=== PATIENT | male | born 1970 | race Caucasian/White ===

== ENCOUNTER 2024-06-23 14:05 | Outpatient (OUT) | payer BC, SELFPAY ==
--- NOTE | 2024-06-23 14:24 | XR_ITS ---
The [address] [address] Patient Name: JANET HOGAN MRN: [id number] date: 1970 Sex: M Assigned Patient Location: RAD Current Patient Location: [facility] Accession/Order Number: [id number] Exam Date: 06/23/2024 14:15 Report Date: 06/23/2024 14:33 At the request of: DEVON FINE Procedure: XR knee LT 4V EXAM: XR knee LT 4V HISTORY: Left Knee Pain COMPARISON: None. TECHNIQUE: 4 views of the left knee were obtained. FINDINGS: There is no evidence of an acute fracture or dislocation. There is mild narrowing of the medial compartment. No osteochondral injury is identified. There is no evidence of a joint effusion. Calcifications are seen in the meniscal cartilage and the articular cartilages in the medial and lateral compartments. XR/XR knee LT 4V IMPRESSION: No acute fracture or dislocation. There is mild narrowing of the medial compartment. Calcium deposition disease is noted. Electronically authenticated by: CLEO RANGEL Date: 06/23/2024 14:33
== END 2024-06-23 14:06 | disposition home or self-care (01) ==
LOC: RAD 14:09
PROVIDERS: PCP Internal Medicine; Visit Provider Internal Medicine
DX: M25.562 Pain in left knee (principal)
CPT/HCPCS: 73564

== ENCOUNTER 2025-02-25 07:47 | Outpatient (OUT) | payer BC, SELFPAY ==
--- OUTSIDE RECORDS SUMMARY | 2025-02-25 07:51 | XMS_ITS | Encounter Summary ---
Author Organization [facility] Address [address] [id number] Care Team Providers Care Medication Nurse Name Role Phone Uzair Layne Primary Care Provider [phone] Source Comments In the event this information is protected by the Federal Confidentiality of Alcohol and Drug AbusePatient Records regulations: The Federal rules restrict any use of the information to criminally investigate or prosecute any alcohol or drug abuse patient.[facility] Reason for Visit * Reason Comments Psg Check In (Adult) Encounter Details Date Type Department Care Team (Late st Contact Info) Description 11/29/2015 Abstract Neurology [address] [id number] [facility] [address] [id number] Psg Check In (Adult) Social History Tobacco Use Types Packs/Day Years Used Date Smoking Tobacco: Never Smokeless Tobacco: Former Chew Quit: 10/28/2015 Comments:16 Years Alcohol Use Standard Drinks/Week Comments Yes 0 (1 standard drink = 0.6 oz pur e alcohol) Socially Sex and Gender Information Value Date Recorded Sex Assigned at Not on file Legal Sex Male 9:11 AM EDT Gender Identity Not on file Sexual Orientation Not on file Occupation Industry Job Start Date Job End Date [employer] Not on file Not on file Not on file documented as of this encounter Plan of Treatment Not on file documented as of this encounter Visit Diagnoses Not on filedocumented in this encounter Care Teams Medication Nurse Relationship Specialty Start Date End Date zUair Layne DO PCP - General Internal Medicine 11/19/15 documented as of this encounter
--- OUTSIDE RECORDS SUMMARY | 2025-02-25 07:51 | XMS_ITS | CCD ---
Author Organization [facility] Care Team Providers Care Laundry Helper Name Role Phone STACEY JOSHUA Admitting Unavailable STACEY JOSHUA Attending Unavailable BALL, DR DUNNE Primary Care Unavailable STACEY JOSHUA Consulting Unavailable REQUEST, DR GOODRICH LISTED Admitting Unavaila ble REQUEST, DR GOODRICH LISTED Attending Unavaila ble REQUEST, DR GOODRICH LISTED Consulting Unavaila ble BALL, DR DUNNE Primary Care Unavailable RUSSELL, RAY Admitting Unavailable RUSSELL, RAY Attending Unavailable CECILIO, DR EN Flaherty Consulting Unavailable Tomer, Storm Consulting Unavailable RUSSELL, RAY Consulting Unavailable ROVERTO, DR DUNNE Admitting Unavailable BALL, DR DUNNE Attending Unavailable ROVERTO, DR DUNNE Primary Care Unavailable ROVERTO, DR DUNNE Consulting Unavailable Roverto, DO Dunne Primary Care Provider [phone] DO Uzair Fine Attending Provider Uzair Fine DO Primary Care Provider [phone] Mark Marshall DO Attending Provider Mark Marshall Admitting Unavailable Mark Marshall Attending Unavailable Uzair Fine Primary Care Unavailable Roverto, Uzair Primary Care Unavailable Roverto, Uzair Attending Unavailable Roverto, Uzair Admitting Unavailable Uzair Fine DO Primary Care Provider [phone] Uzair Fine DO Attending Provider [phone] Allergies Allergy Classification Reported Allergen(s) Allergy Type Date of Onset Reaction(s) Facility (1 source) Azithromycin Drug Allergy [facility] Repository (1 source) HYDROmorphone Drug Allergy [facility] Repository (1 source) Azithromycin Drug Allergy 06-20-2024 [facility] Repository Medications Current Medications Medication Drug Class(es) Dates Sig (Normalized) Sig (Original) amLODIPine 2.5 mg oral tablet (4 sources) Dihydropyridine Calcium Channel [place]on Start: 02-22-2024 take 1 tablet by mouth once daily Amlodipine 2.5 mg tablet Active 0 .ROUTE .COMPLEX 90 February 22, 2024 8:46pm TAKE 1 TABLET BY MOUTH EVERY DAY Complies with drug therapy Start: 01-26-2024 End: 02-22-2024 take 1 tablet by mouth once daily Amlodipine 2.5 mg tablet Discontinued 2.5 MG PO Daily January 26, 2024 12:00am February 22, 2024 8:47pm carvedilol 3.125 mg oral tablet (5 sources) alpha-Adrenergic Jameson, beta-Adrenergic Jameson Start: 08-11-2024 take 1 tablet by mouth twice daily Carvedilol 3.125 mg tablet Active 0 .ROUTE .COMPLEX 180 August 11, 2024 10:46pm TAKE 1 TABLET BY MOUTH TWICE A DAY Complies with drug therapy Start: 01-13-2024 End: 08-11-2024 take 1 tablet by mouth twice daily Carvedilol 3.125 mg tablet Discontinued 3.125 MG PO Twice daily January 13, 2024 12:00am August 11, 2024 10:46pm etodolac 500 mg oral tablet (2 sources) Nonsteroidal Anti-inflammatory Drug Start: 06-20-2024 take 1 tablet by mouth twice daily Etodolac 500 mg tablet Active 500 MG PO Twice daily June 20, 2024 1:00am Complies with drug therapy meloxicam 15 mg oral tablet (2 sources) Nonsteroidal Anti-inflammatory Drug Start: 06-28-2024 take 1 tablet by mouth once daily Meloxicam 15 mg tablet Active 15 MG PO Daily June 28, 2024 1:00am Complies with drug therapy Problems Problem Classification Problem Date Documented Date Episodic/Chronic Diabetes mellitus without complication (2 sources) Impaired fasting glycemia; Translations: [Impaired fasting glucose] 01-26-2024 Episodic Essential hypertension (8 sources) Essential hypertension; Translations: [Essential (primary) hypertension] 01-13-2024 Chronic Gout and other crystal arthropathies (6 sources) 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; Translations: [Other chondrocalcinosis, left knee] 06-28-2024 Chronic Immunizations and screening for infectious disease (4 sources) Encounter for immunization; Translations: [ENCOUNTER FOR IMMUNIZATION] Onset: 05-28-2021 Episodic Nonspecific chest pain (4 sources) Chest pain, unspecified; Translations: [CHEST PAIN UNSPECIFIED] Onset: 08-17-2021 Episodic Other lower respiratory disease (1 source) Shortness of breath; Translations: [SHORTNESS OF BREATH] Onset: 08-19-2021 Episodic Other male genital disorders (7 sources) Male erectile dysfunction, unspecified; Translations: [Erectile dysfunction] 01-13-2024 Chronic Other non-traumatic joint disorders (4 sources) Pain in left knee; Translations: [Left knee pain] Onset: 06-28-2024 01-26-2024 Episodic Other nutritional; endocrine; and metabolic disorders (5 sources) Overweight; Translations: [Overweight] 01-13-2024 Episodic Other nutritional; endocrine; and metabolic disorders (2 sources) Overweight; Translations: [Overweight] 01-13-2024 Episodic Other screening for suspected conditions (not mental disorders or infectious disease) (4 sources) Encounter for screening for malignant neoplasm of prostate; Translations: [Screening for malignant neoplasms of prostate] Onset: 04-12-2021 01-13-2024 Episodic Screening and history of mental health and substance abuse codes (1 source) Personal history of nicotine dependence; Translations: [PERSONAL HISTORY OF NICOTINE DEPEND] Onset: 08-19-2021 Episodic Sprains and strains (3 sources) Sprain of left knee; Translations: [Sprain of other specified parts of left knee, initial encounter] 01-26-2024 Episodic Results Test Name Value Interpretation Reference Range Facility X-ray reportOrdered By: Sagar Ling on 06-28-2024 Study report [facility] [address] [place] [address] XRay Report Signed Patient: Harlan Ham MR#: [id number] : 1970 Acct:[id number] Age/Sex: 54 / M ADM Date: 5 Loc: [facility] Room: Type: [facility] Attending Dr: Mark Marshall DO Copies to: Mark Marshall DO~ Ordering Provider: Mark Marshall DO Date of Service: 06/28/24 XR/XR knee LT 4V*: M25.562 - Pain in left knee ([id number]) XR/XR knee RT 2V: M25.562 - Pain in left knee BILATERAL KNEE - 4 views left 2 views right CLINICAL HISTORY: Left knee pain for one year. COMPARISON: None FINDINGS: Left knee demonstrates no knee joint effusion. Mild degenerative changes with chondrocalcinosis of the menisci. No acute bony process. A similar process is seen involving the right knee without acute bony process. XR/XR knee RT 2V IMPRESSION: MILD DEGENERATIVE CHANGES OF BOTH KNEES WITHOUT ACUTE BONY PROCESS. Impression dictated by: Fei Ling Jr., D.O.06/28/2024 9:23 AM Dictation Location: RADIO-PC-22 Transcribed By: JUAN JOSE 06/28/24 0923 Dictated By: Fei Ling Jr, DO 06/28/2422 Signed By: 06/28/24922 [facility] XR knee LT 4V*on 06-28-2024 XR knee LT 4V* [facility] [address] [place] [address] XRay Report Signed Patient: Harlan Ham MR#: [id number] 24 : 1970 Acct:[id number] Age/Sex: 54 / M ADM Date: 06/28/24 Loc: [facility] Room: Type: [facility] Attending Dr: Mark Marshall DO Copies to: Mark Marshall DO Ordering Provider: Mark Marshall DO Date of Service: 06/28/24 XR/XR knee LT 4V*: M25.562 - Pain in left knee ([id number]) XR/XR knee RT 2V: M25.562 - Pain in left knee BILATERAL KNEE - 4 views left 2 views right CLINICAL HISTORY: Left knee pain for one year. COMPARISON: None FINDINGS: Left knee demonstrates no knee joint effusion. Mild degenerative changes with chondrocalcinosis of the menisci. No acute bony process. A similar process is seen involving the right knee without acute bony process. XR/XR knee RT 2V IMPRESSION: MILD DEGENERATIVE CHANGES OF BOTH KNEES WITHOUT ACUTE BONY PROCESS. Impression dictated by: Fei Ling Jr., D.O.06/28/2024 9:23 AM Dictation Location: RADIO-PC-22 Transcribed By: JUAN JOSE 06/28/24 0923 Dictated By: Fei Ling Jr, DO 06/28/24921 Signed By: 06/28/24922 Normal [facility] A1C with Estimated Average G cadence 01-23-2024 Glucose [Mass/Vol] 126 mg/dL Normal [facility] Comment on above: Result Comment: PERF ORMED BY: [place] [address] PATHOLOGIST JAVA DEVELOPER WHIT PICHARDO M.D. Performed By: #### C BC, CMP, LIPID, PSAS, TEST, A1C WTH eA #### [facility] [address] Alanine aminotransferase [En zymatic activity/volume] in Serum or PlasmaOrdered By: Uzair Fine on 01-23-2024 ALT [Catalytic activity/Vol] 20 U/L Normal 7-52 [facility] Comment on above: Performed By: #### C BC, CMP, LIPID, PSAS, TEST, A1C WTH eA #### [place] [address] [place] Albumin [Mass/volume] in Ser um or Plasma by Bromocresol green (BCG) dye binding methoOrdered By: Uzair Fine on 01-23-2024 Albumin BCG dye [Mass/Vol] 4.3 g/dL 3.5-5.7 [facility] Alkaline phosphatase [Enzyma tic activity/volume] in Serum or PlasmaOrdered By: Uzair Fine on 01-23-2024 ALP [Catalytic activity/Vol] 54 U/L Normal 34-104 [facility] Comment on above: Performed By: #### C BC, CMP, LIPID, PSAS, TEST, A1C WT eA #### [facility] [address] [place] [address] [place] Aspartate aminotransferase [ Enzymatic activity/volume] in Serum or PlasmaOrdered By: Uzair Fine on 01-23-2024 AST [Catalytic activity/Vol] 19 U/L Normal 13-39 [facility] Comment on above: Performed By: #### C BC, CMP, LIPID, PSAS, TEST, A1C WTH eA #### [place] [address] [place] Automated basophil %Ordered By: Uzair Fine on 01-23-2024 Basophils/100 WBC (Bld) 1.1 % Normal . [facility] Comment on above: Performed By: #### C BC, CMP, LIPID, PSAS, TEST, A1C WTH eA #### [address] Automated basophil countOrde red By: Uzair Fine on 01-23-2024 Basophils (Bld) [#/Vol] 0.1 10*3/uL Normal 0.0-0.2 [facility] Comment on above: Result Comment: PERF ORMED BY: [place] [address] PATHOLOGIST JAVA DEVELOPER WHIT PICHARDO M.D. Performed By: #### C BC, CMP, LIPID, PSAS, TEST, A1C WT eA #### [address] Automated blood monocyte cou ntOrdered By: Uzair Fine on 01-23-2024 Monocytes (Bld) [#/Vol] 0.4 10*3/uL Normal 0.0-0.8 [facility] Comment on above: Performed By: #### C BC, CMP, LIPID, PSAS, TEST, A1C [facility] eA #### [address] Automated eosinophil %Ordere d By: Uzair Fine on 01-23-2024 Eosinophils/100 WBC (Bld) 3.1 % Normal . [facility] Comment on above: Performed By: #### C BC, CMP, LIPID, PSAS, TEST, A1C WTH eA #### [address] Automated eosinophil countOr dered By: Uzair Fine on 01-23-2024 Eosinophils (Bld) [#/Vol] 0.2 10*3/uL Normal 0.0-0.45 [facility] Comment on above: Performed By: #### C BC, CMP, LIPID, PSAS, TEST, A1C WTH eA #### [address] Automated monocyte %Ordered By: Uzair Fine on 01-23-2024 Monocytes/100 WBC (Bld) 7.7 % Normal . [facility] Comment on above: Performed By: #### C BC, CMP, LIPID, PSAS, TEST, A1C WTH eA #### [facility] [address] [place] [address] [place] Automated neutrophil %Ordere d By: Uzair Fine on 01-23-2024 Neutrophils/100 WBC (Bld) 54.0 % Normal . [facility] Comment on above: Performed By: #### C BC, CMP, LIPID, PSAS, TEST, A1C WTH eA #### [facility] [address] [place] [address] [place] Bilirubin.total [Mass/volume ] in Serum or PlasmaOrdered By: Uzair Fine on 01-23-2024 Bilirubin [Mass/Vol] 0.7 mg/dL Normal 0.3-1.0 [facility] Comment on above: Performed By: #### C BC, CMP, LIPID, PSAS, TEST, A1C WT eA #### [facility] [address] [place] [address] [place] Calcium [Mass/volume] in Ser um or PlasmaOrdered By: Uzair Fine on 01-23-2024 Calcium [Mass/Vol] 9.3 mg/dL Normal 8.6-10.3 [facility] Comment on above: Performed By: #### C BC, CMP, LIPID, PSAS, TEST, A1C WTH eA #### [facility] [address] [place] [address] [place] Carbon dioxide, total [Moles /volume] in Serum or PlasmaOrdered By: Uzair Fine on 01-23-2024 CO2 [Moles/Vol] 26.2 mmol/L Normal 21.0-31.0 [facility] Comment on above: Performed By: #### C BC, CMP, LIPID, PSAS, TEST, A1C WTH eA #### [facility] [address] [place] [address] [place] Chloride [Moles/volume] in S jan or PlasmaOrdered By: Uzair Fine on 01-23-2024 Chloride [Moles/Vol] 105 mmol/L Normal 98-107 [facility] Comment on above: Performed By: #### C BC, CMP, LIPID, PSAS, TEST, A1C WTH eA #### [facility] [address] [place] [phone] [facility] Cholesterol [Mass/volume] in Serum or PlasmaOrdered By: Uzair Fine on 01-23-2024 Cholesterol [Mass/Vol] 202 mg/dL High 140-200 [facility] Comment on above: Chol less than 200 m g/dl low riskChol 201-239 mg/dl borderline riskChol 240 mg/dl and greater high risk Result Comment: Chol less than 200 mg/dl low risk Chol 201-239 mg/dl borderline risk Chol 240 mg/dl and greater high risk Performed By: #### C BC, CMP, LIPID, PSAS, TEST, A1C WT eA #### [facility] [address] [place] [phone] [facility] Cholesterol in LDL Calc [Mas s/Vol]Ordered By: Uzair Fine on 01-23-2024 Cholesterol in LDL [Mass/Vol] 117 mg/dL High 0-100 [facility] Comment on above: LDL ATP III CLASSIFI CATIONLDL less than 100 mg/dL OptimalLDL 100-129 mg/dL Near or above optimalLDL 130-159 mg/dL Borderline highLDL 160-189 mg/dL HighLDL greater than 189 mg/dL Very high Cholesterol in VLDL Calc [Ma ss/Vol]Ordered By: Uzair Fine on 01-23-2024 Cholesterol in VLDL [Mass/Vol] 37 mg/dL [facility] Complete Blood Count Auto Di ffon 01-23-2024 Mean Corpuscular HGB Conc 34.1 g/dL Normal 32.5-35.6 [facility] Comment on above: Performed By: #### C BC, CMP, LIPID, PSAS, TEST, A1C WT eA #### [facility] [address] [place] [phone] [facility] NRBC% 0.0 /100{WBC} Normal 0-0.5 [facility] Comment on above: Performed By: #### C BC, CMP, LIPID, PSAS, TEST, A1C WTH eA #### [facility] [address] [place] [phone] [facility] Comprehensive Metabolic Pane denisa 01-23-2024 Albumin [Mass/Vol] 4.3 g/dL Normal 3.5-5.7 [facility] Comment on above: Performed By: #### C BC, CMP, LIPID, PSAS, TEST, A1C WTH eA #### [facility] [address] GFR/1.73 sq M.predicted MDRD (S/P/Bld) [Vol rate/Area] mL/min/{1.73_m2} Normal [facility] Comment on above: Performed By: #### C BC, CMP, LIPID, PSAS, TEST, A1C WTH eA #### [facility] [address] Creatinine [Mass/volume] in Serum or PlasmaOrdered By: Uzair Fine on 01-23-2024 Creatinine [Mass/Vol] 0.95 mg/dL Normal 0.70-1.30 [facility] Comment on above: Performed By: #### C BC, CMP, LIPID, PSAS, TEST, A1C WTH eA #### [address] Erythrocyte distribution wid th [Ratio] by Automated countOrdered By: Uzair Fine on 01-23-2024 Erythrocyte distribution width (RBC) [Ratio] 13.8 % Normal 12.0-14.8 [facility] Comment on above: Performed By: #### C BC, CMP, LIPID, PSAS, TEST, A1C WTH eA #### [facility] [address] [place] [address] [place] Erythrocytes [#/volume] in B lood by Automated countOrdered By: Uzair Fine on 01-23-2024 RBC (Bld) [#/Vol] 4.33 10*6/uL Normal 3.90-5.60 [facility] Comment on above: Performed By: #### C BC, CMP, LIPID, PSAS, TEST, A1C WTH eA #### [facility] [address] [place] [phone] [place] Glucose [Mass/volume] in Ser um or PlasmaOrdered By: Uzair Fine on 01-23-2024 Glucose [Mass/Vol] 103 mg/dL High 70-100 [facility] Comment on above: ADA recommended refe rence rangeRandom Glucose Reference Range is dependent on time and content of last meal. Glucose of more than 200 mg/dL in a nonstressed, ambulatory subject supports the diagnosis of Diabetes Mellitus. Result Comment: [place] om Glucose Reference Range is dependent on time and content of last meal. Glucose of more than 200 mg/dL in a nonstressed, ambulatory subject supports the diagnosis of Diabetes Mellitus. ADA recommended reference range Performed By: #### C BC, CMP, LIPID, PSAS, TEST, A1C WTH eA #### [facility] [address] Glucose mean value [Mass/vol ume] in Blood Estimated from glycated hemoglobinOrdered By: Uzair Fine on 01-23-2024 Average glucose Estimated from glycated hemoglobin (Bld) [Mass/Vol] 126 mg/dL [facility] Hematocrit [Volume Fraction] of Blood by Automated countOrdered By: Uzair Fine on 01-23-2024 Hematocrit (Bld) [Volume fraction] 38.8 % Normal 38.8-50.0 [facility] Comment on above: Performed By: #### C BC, CMP, LIPID, PSAS, TEST, A1C WTH eA #### [facility] [address] Hemoglobin A1c percentageOrd ered By: Uzair Fine on 01-23-2024 HbA1c (Bld) [Mass fraction] 6.0 % High 4.3-5.6 [facility] Comment on above: Increased risk for d iabetes: 5.7 - 6.4diabetes: >6.4glycemic control for adults with diabetes: <7.0 Result Comment: Incr eased risk for diabetes: 5.7 - 6.4 diabetes: >6.4 glycemic control for adults with diabetes: <7.0 Performed By: #### C BC, CMP, LIPID, PSAS, TEST, A1C WTH eA #### [facility] [address] [place] [phone] [place] Hemoglobin [Mass/volume] in BloodOrdered By: Uzair Fine on 01-23-2024 Hemoglobin (Bld) [Mass/Vol] 13.2 g/dL Normal 13.0-17.0 [facility] Comment on above: Performed By: #### C BC, CMP, LIPID, PSAS, TEST, A1C WTH eA #### [facility] [address] Leukocytes [#/volume] correc tata for nucleated erythrocytes in Blood by Automated counOrdered By: Uzair Fine on 01-23-2024 WBC corrected for nucl RBC Auto (Bld) [#/Vol] 5.3 10*3/uL 4.1-10.5 [facility] Leukocytes [#/volume] in Blo od by Automated countOrdered By: Uzair Fine on 01-23-2024 WBC (Bld) [#/Vol] 5.3 10*3/uL Normal 4.1-10.5 [facility] Comment on above: Performed By: #### C BC, CMP, LIPID, PSAS, TEST, A1C WTH eA #### [facility] [address] Lipid Panelon 01-23-2024 LDL Cholesterol,Calculated 117 mg/dL High 0-100 [facility] Comment on above: Result Comment: LDL ATP III CLASSIFICATION LDL less than 100 mg/dL Optimal LDL 100-129 mg/dL Near or above optimal LDL 130-159 mg/dL Borderline high LDL 160-189 mg/dL High LDL greater than 189 mg/dL Very high Performed By: #### C BC, CMP, LIPID, PSAS, TEST, A1C WTH eA #### [address] Triglyceride w/Reflex 189 mg/dL High 0-149 [facility] Comment on above: Result Comment: TRIG ATP III CLASSIFICATION TRIG less than 150 mg/dL Normal TRIG 150-199 mg/dL Borderline high TRIG 200-500 mg/dL High TRIG greater than 500 mg/dL Very high Standard traceable to the Center for Disease Conrtrol and Prevention (CDC) test method. Performed By: #### C BC, CMP, LIPID, PSAS, TEST, A1C WTH eA #### [facility] [address] VLDL CHOLESTEROL 37 mg/dL Normal [facility] Comment on above: Performed By: #### C BC, CMP, LIPID, PSAS, TEST, A1C WTH eA #### [place] [address] [place] Lymphocytes [#/volume] in Bl ood by Automated countOrdered By: Uzair Fine on 01-23-2024 Lymphocytes (Bld) [#/Vol] 1.8 10*3/uL Normal 1.00-4.8 [facility] Comment on above: Performed By: #### C BC, CMP, LIPID, PSAS, TEST, A1C WTH eA #### [place] [address] [place] Lymphocytes/100 leukocytes i n Blood by Automated countOrdered By: Uzair Fine on 01-23-2024 Lymphocytes/100 WBC (Bld) 34.1 % Normal . [facility] Comment on above: Performed By: #### C BC, CMP, LIPID, PSAS, TEST, A1C WTH eA #### [address] MCH [Entitic mass] by Automa tata countOrdered By: Uzair Fine on 01-23-2024 MCH (RBC) [Entitic mass] 30.6 pg Normal 27.5-35.2 [facility] Comment on above: Performed By: #### C BC, CMP, LIPID, PSAS, TEST, A1C WTH eA #### [address] MCHC Auto (RBC) [Mass/Vol]Or dered By: Uzair Fine on 01-23-2024 MCHC (RBC) [Mass/Vol] 34.1 g/dL 32.5-35.6 [facility] MCV [Entitic volume] by Auto mated countOrdered By: Uzair Fine on 01-23-2024 MCV (RBC) [Entitic vol] 89.6 fL Normal 83.5-101 [facility] Comment on above: Performed By: #### C BC, CMP, LIPID, PSAS, TEST, A1C WTH eA #### [place] [address] [place] Neutrophils [#/volume] in Bl ood by Automated countOrdered By: Uzair Fine on 01-23-2024 Neutrophils (Bld) [#/Vol] 2.8 10*3/uL Normal 1.8-7.7 [facility] Comment on above: Performed By: #### C BC, CMP, LIPID, PSAS, TEST, A1C WTH eA #### [facility] [address] [place] [address] No Panel InformationOrdered By: Uzair Fine on 01-23-2024 Estimated GFR (CKD-EPI) > 60.0 mL/Min [facility] Creatinine Clearance (Chem N/A [facility] Nucleated erythrocytes [Pres ence] in Blood by Automated countOrdered By: Uzair Fine on 01-23-2024 Nucleated RBC Auto Ql (Bld) 0.0 /100{WBC} 0-0.5 [facility] PSA Screen (Yearly Only)on 0 01-23-2024 PSA Screen (Yearly Only) 0.510 ng/mL Normal 0.000-4.00 0 [facility] Comment on above: Result Comment: Seri al tumor marker results determined by assays using different manufacturers or methods may not be comparable. [facility] english language arts teacher and method: .[employer] DXI, CHEMILUMINESCENT IMMUNOASSAY. PERFORMED BY: [place] [address] PATHOLOGIST JAVA DEVELOPER WHIT PICHARDO M.D. Performed By: #### C BC, CMP, LIPID, PSAS, TEST, A1C WT eA #### [facility] [address] [place] [address] [place] Platelet mean volume [Entiti c volume] in Blood by Automated countOrdered By: Uzair Fine on 01-23-2024 Platelet mean volume (Bld) [Entitic vol] 7.2 fL Normal 6.6-10.1 [facility] Comment on above: Performed By: #### C BC, CMP, LIPID, PSAS, TEST, A1C WT eA #### [address] Platelets [#/volume] in Bloo d by Automated countOrdered By: Uzair Fine on 01-23-2024 Platelets (Bld) [#/Vol] 287 10*3/uL Normal 150-450 [facility] Comment on above: Performed By: #### C BC, CMP, LIPID, PSAS, TEST, A1C WT eA #### [facility] [address] Potassium [Moles/volume] in Serum or PlasmaOrdered By: Uzair Fine on 01-23-2024 Potassium [Moles/Vol] 4.3 mmol/L Normal 3.5-5.1 [facility] Comment on above: Performed By: #### C BC, CMP, LIPID, PSAS, TEST, A1C WT eA #### [facility] [address] Prostate specific Ag [Mass/v olume] in Serum or PlasmaOrdered By: Uzair Fine on 01-23-2024 Prostate specific Ag [Mass/Vol] 0.510 ng/mL 0.000-4.000 [facility] Comment on above: Serial tumor marker results determined by assays using different manufacturers or methods may not be comparable.[facility] english language arts teacher and method:.[employer] DXI, CHEMILUMINESCENT IMMUNOASSAY. Protein [Mass/volume] in Ser um or PlasmaOrdered By: Uzair Fine on 01-23-2024 Protein [Mass/Vol] 6.8 g/dL Normal 6.4-8.9 [facility] Comment on above: Performed By: #### C BC, CMP, LIPID, PSAS, TEST, A1C WT eA #### [facility] [address] Serum globulin measurement b y calculation (mass/volume)Ordered By: Uzair Fine on 01-23-2024 Globulin (S) [Mass/Vol] 2.5 g/dL Normal [facility] Comment on above: Performed By: #### C BC, CMP, LIPID, PSAS, TEST, A1C WT eA #### [facility] [address] Serum or plasma albumin/glob ulin mass ratioOrdered By: Uzair Fine on 01-23-2024 Albumin/Globulin [Mass ratio] 1.7 {ratio} Normal [facility] Comment on above: Performed By: #### C BC, CMP, LIPID, PSAS, TEST, A1C WTH eA #### [facility] [address] Serum or plasma anion gap de terminationOrdered By: Uzair Fine on 01-23-2024 Anion gap [Moles/Vol] 10.1 mmol/L Normal 6.0-15.0 [facility] Comment on above: Performed By: #### C BC, CMP, LIPID, PSAS, TEST, A1C WTH eA #### [facility] [address] Serum or plasma high density lipoprotein (HDL) cholesterol measurementOrdered By: Uzair Fine on 01-23-2024 Cholesterol in HDL [Mass/Vol] 47 mg/dL Normal 23-92 [facility] Comment on above: HDL CHOL ATP-III CLA SSIFICATION Cardiovascular RiskHDL > or equal to 60 mg/dL LOWHDL < 40 mg/dL HIGH Result Comment: HDL CHOL ATP-III CLASSIFICATION Cardiovascular Risk HDL > or equal to 60 mg/dL LOW HDL < 40 mg/dL HIGH Performed By: #### C BC, CMP, LIPID, PSAS, TEST, A1C WTH eA #### [address] Serum or plasma total choles terol/high density lipoprotein (HDL) cholesterol mass ratOrdered By: Uzair Fine on 01-23-2024 Cholesterol.total/Choles terol in HDL [Mass ratio] 4.3 {ratio} Normal <5.0 [facility] Comment on above: Result Comment: PERF ORMED BY: [place] [address] PATHOLOGIST JAVA DEVELOPER WHIT PICHARDO M.D. Performed By: #### C BC, CMP, LIPID, PSAS, TEST, A1C WT eA #### [address] Sodium [Moles/volume] in Ser um or PlasmaOrdered By: Uzair Fine on 01-23-2024 Sodium [Moles/Vol] 137 mmol/L Normal 136-145 [facility] Comment on above: Performed By: #### C BC, CMP, LIPID, PSAS, TEST, A1C WTH eA #### [facility] [id number] [facility] Testosteroneon 01-23-2024 Testosterone 3.00 ng/mL Normal 1.75-7.81 [facility] Comment on above: Result Comment: PERF ORMED BY: [facility] [address] [place] [address] PATHOLOGIST JAVA DEVELOPER WHIT PICHARDO M.D. Performed By: #### C BC, CMP, LIPID, PSAS, TEST, A1C WTH eA #### [facility] [address] [id number] [facility] Testosterone [Mass/volume] i n Serum or PlasmaOrdered By: Uzair Fine on 01-23-2024 Testosterone [Mass/Vol] 3.00 ng/mL 1.75-7.81 [facility] Triglyceride [Mass/volume] i n Serum or PlasmaOrdered By: Uzair Fine on 01-23-2024 Triglyceride [Mass/Vol] 189 mg/dL High 0-149 [facility] Comment on above: TRIG ATP III CLASSIF ICATIONTRIG less than 150 mg/dL NormalTRIG 150-199 mg/dL Borderline highTRIG 200-500 mg/dL High TRIG greater than 500 mg/dL Very highStandard traceable to the Center for Disease Conrtrol and Prevention (CDC) test method. Urea nitrogen [Mass/volume] in Serum or PlasmaOrdered By: Uzair Fine on 01-23-2024 Urea nitrogen [Mass/Vol] 24 mg/dL Normal 7-25 [facility] Comment on above: Performed By: #### C BC, CMP, LIPID, PSAS, TEST, A1C WTH eA #### [facility] [address] [id number] [place] AMYLASEon 08-17-2021 Amylase [Catalytic activity/Vol] 42 U/L Normal 31-110 [facility] Comment on above: Performed By: #### B VOCAL MUSIC TEACHER, LIPA, MELINA, HSTROPN, BMP #### [facility] [address] [address] [address] Yeimy Rosales BNPon 08-17-2021 Natriuretic peptide B (Bld) [Mass/Vol] 19.0 pg/mL Normal <=900.0 [facility] Comment on above: Performed By: #### B VOCAL MUSIC TEACHER, LIPA, MELINA, HSTROPN, BMP #### [facility] [address] [place] [address] Dr. Yeimy Rosales CBC AUTO DIFFon 08-17-2021 BASO # 0.1 103/ul Normal 0.0-0.1 [facility] Comment on above: Performed By: #### L IPID, CMP #### [facility] [address] [place] [address] Dr. Yeimy Rosales Basophils/100 WBC (Bld) 1.2 % Normal 0.2-2.0 [facility] Comment on above: Performed By: #### L IPID, CMP #### [facility] [address] [place] [address] Dr. Yeimy Rosales EO # 0.1 103/ul Normal 0.0-0.7 [facility] Comment on above: Performed By: #### L IPID, CMP #### [facility] [address] [place] [address] Dr. Yeimy Rosales Eosinophils/100 WBC (Bld) 1.2 % Normal 0.9-7.0 [facility] Comment on above: Performed By: #### L IPID, CMP #### [facility] [address] [place] [address] Dr. Yeimy Rosales Erythrocyte distribution width (RBC) [Ratio] 12.8 % Normal 11.0-15.0 [facility] Comment on above: Performed By: #### L IPID, CMP #### [facility] [address] [place] [address] Dr. Yeimy Rosales Hematocrit (Bld) [Volume fraction] 40.6 % Critically low 42.0-54.0 [facility] Comment on above: Performed By: #### L IPID, CMP #### [facility] [address] [place] [address] Dr. Yeimy Rosales Hemoglobin (Bld) [Mass/Vol] 13.8 g/dL Critically low 14.0-18.0 [facility] Comment on above: Performed By: #### L IPID, CMP #### [facility] [address] [address] [address] Yeimy Rosales IG # 0.02 10e3/ul Normal 0.00-0.03 [facility] Comment on above: Performed By: #### L IPID, CMP #### [facility] [address] [address] [address] Yeimy Rosales IG % 0.4 % Normal 0.0-0.5 [facility] Comment on above: Performed By: #### L IPID, CMP #### [facility] [address] [address] [address] Yeimy Rosales LYMPH # 1.8 103/ul Normal 1.2-3.8 [facility] Comment on above: Performed By: #### L IPID, CMP #### [facility] [address] [address] [address] Yeimy Rosales Lymphocytes/100 WBC (Bld) 36.3 % Normal 20.5-60.0 [facility] Comment on above: Performed By: #### L IPID, CMP #### [facility] [address] [address] [address] Yeimy Rosales MANUAL DIFF REQ NO Normal [facility] Comment on above: Performed By: #### L IPID, CMP #### [facility] [address] [address] [address] Yeimy Rosales MCH (RBC) [Entitic mass] 30.3 pg Normal 25.9-34.0 [facility] Comment on above: Performed By: #### L IPID, CMP #### [facility] [address] [address] [address] Yeimy Rosales MCHC (RBC) [Mass/Vol] 34.0 g/dL Normal 29.9-35.2 [facility] Comment on above: Performed By: #### L IPID, CMP #### [facility] [address] [address] [address] Yeimy Rosales MCV (RBC) [Entitic vol] 89.0 fL Normal 80.0-94.0 [facility] Comment on above: Performed By: #### L IPID, CMP #### [facility] [address] [address] [address] Yeimy Rosales MONO # 0.6 103/ul Normal 0.3-0.8 [facility] Comment on above: Performed By: #### L IPID, CMP #### [facility] [address] [place] [address] Dr. Yeimy Rosales Monocytes/100 WBC (Bld) 11.2 % Normal 1.7-12.0 [facility] Comment on above: Performed By: #### L IPID, CMP #### [facility] [address] [place] [address] Dr. Yeimy Rosales NEUT # 2.4 103/ul Normal 1.4-6.5 [facility] Comment on above: Performed By: #### L IPID, CMP #### [facility] [address] [place] [address] Dr. Yeimy Rosales Neutrophils/100 WBC (Bld) 49.7 % Normal 43.0-75.0 [facility] Comment on above: Performed By: #### L IPID, CMP #### [facility] [address] [place] [address] Dr. Yeimy Rosales Platelet mean volume (Bld) [Entitic vol] 8.7 fL Critically low 9.5-13.5 [facility] Comment on above: Performed By: #### L IPID, CMP #### [facility] [address] [place] [address] Dr. Yeimy Rosales PLT 322 103/ul Normal 150-450 [facility] Comment on above: Performed By: #### L IPID, CMP #### [facility] [address] [place] [address] Dr. Yeimy Rosales RBC 4.56 106/ul Critically low 4.70-6.10 [facility] Comment on above: Performed By: #### L IPID, CMP #### [facility] [address] [place] [address] Dr. Yeimy Rosales WBC 4.9 103/ul Normal 4.0-11.0 [facility] Comment on above: Performed By: #### L IPID, CMP #### [facility] [address] [place] [address] Dr. Yeimy Rosales LIPASEon 08-17-2021 Lipase [Catalytic activity/Vol] 79.0 U/L Normal 23.0-300.0 [facility] Comment on above: Performed By: #### B VOCAL MUSIC TEACHER, LIPA, MELINA, HSTROPN, BMP #### [facility] [address] [place] [address] Dr. Yeimy Rosales PROF CHEM 8 (BAS METB)on Anion gap [Moles/Vol] 16.4 mmol/L Normal [facility] Comment on above: Performed By: #### B VOCAL MUSIC TEACHER, LIPA, MELINA, HSTROPN, BMP #### [facility] [address] [place] [address] Dr. Yeimy Rosales Calcium [Mass/Vol] 8.5 mg/dL Normal 8.4-10.2 [facility] Comment on above: Performed By: #### B VOCAL MUSIC TEACHER, LIPA, MELINA, HSTROPN, BMP #### [facility] [address] [place] [address] Dr. Yeimy Rosales Chloride [Moles/Vol] 106 mmol/L Normal 98-107 [facility] Comment on above: Performed By: #### B VOCAL MUSIC TEACHER, LIPA, MELINA, HSTROPN, BMP #### [facility] [address] [place] [address] Dr. Yeimy Rosales CO2 [Moles/Vol] 23.5 mmol/L Normal 22.0-30.0 [facility] Comment on above: Performed By: #### B VOCAL MUSIC TEACHER, LIPA, MELINA, HSTROPN, BMP #### [facility] [address] [place] [address] Dr. Yeimy Rosales Creatinine [Mass/Vol] 0.93 mg/dL Normal 0.66-1.25 [facility] Comment on above: Performed By: #### B VOCAL MUSIC TEACHER, LIPA, MELINA, HSTROPN, BMP #### [facility] [address] [address] [address] Yeimy Rosales EGFR-AF GUAMANIAN >60 Normal >=60 [facility] Comment on above: Performed By: #### B VOCAL MUSIC TEACHER, LIPA, MELINA, HSTROPN, BMP #### [facility] [address] [address] [address] Yeimy Rosales EGFR-NON AF GUAMANIAN >60 Normal >=60 [facility] Comment on above: Performed By: #### B VOCAL MUSIC TEACHER, LIPA, MELINA, HSTROPN, BMP #### [facility] [address] [address] [address] Yeimy Rosales Glucose [Mass/Vol] 121 mg/dL Critically high 74-106 [facility] Comment on above: Performed By: #### B VOCAL MUSIC TEACHER, LIPA, MELINA, HSTROPN, BMP #### [facility] [address] [place] [address] Dr. Yeimy Rosales Potassium [Moles/Vol] 3.9 mmol/L Normal 3.4-5.0 [facility] Comment on above: Performed By: #### B VOCAL MUSIC TEACHER, LIPA, MELINA, HSTROPN, BMP #### [facility] [address] [place] [address] Dr. Yeimy Rosales Sodium [Moles/Vol] 142 mmol/L Normal 137-145 [facility] Comment on above: Performed By: #### B VOCAL MUSIC TEACHER, LIPA, MELINA, HSTROPN, BMP #### [facility] [address] [place] [address] Dr. Yeimy Rosales Urea nitrogen [Mass/Vol] 15.0 mg/dL Normal 9.0-20.0 [facility] Comment on above: Performed By: #### B VOCAL MUSIC TEACHER, LIPA, MELINA, HSTROPN, BMP #### [facility] [address] [place] [address] Dr. Yeimy Rosales Urea nitrogen/Creatinine [Mass ratio] 16.1 mg/mg Normal [facility] Comment on above: Performed By: #### B VOCAL MUSIC TEACHER, LIPA, MELINA, HSTROPN, BMP #### [facility] [address] [place] [address] Dr. Yeimy Rosales PROTIMEon 08-17-2021 INR Coag (PPP) [Relative time] 0.97 {INR} Normal [facility] Comment on above: Performed By: #### P T, PTT #### [facility] [address] [place] [address] Dr. Yeimy Rosales INR GUIDELINES SEE BELOW Normal [facility] Comment on above: Result Comment: RAMESH RED INR: 2.0 - 3.0 CONDITIONS NOT LISTED BELOW 2.5 - 3.5 FOR PROSTHETIC HEART VALVE REPLACEMENT 2.5 - 3.5 RECURRENT THROMBOSIS Performed By: #### P T, PTT #### [facility] [address] [place] [address] Dr. Yeimy Rosales PT Coag (PPP) [Time] 10.5 s Normal 9.0-11.6 [facility] Comment on above: Performed By: #### P T, PTT #### [facility] [address] [place] [address] Dr. Yeimy Rosales PTTon 08-17-2021 aPTT Coag (Bld) [Time] 26.2 s Normal 22.3-36.2 e [facility] Comment on above: Performed By: #### L IPID, CMP #### [facility] [address] [place] [address] Dr. Yeimy Rosales TROPONIN, HIGH SENSITIVITYon 08-17-2021 HSTROP 5.7 pg/mL Normal 4.0-42.2 [facility] Comment on above: Result Comment: CUT- OFF POINTS HAVE BEEN ESTABLISHED BASED ON THE FOURTH UNIVERSAL DEFINITIONS OF MYOCARDIAL INFARCTION. THE UPPER REFERENCE LIMIT (URL) OF TROPONIN, DEFINED THE 99TH PERCENTILE OF cTnI DISTRIBUTION IN A REFERENCE POPULATION, HAS BEEN CONFIRMED THE DECISION THRESHOLD FOR MS DIAGNOSIS. Performed By: #### B VOCAL MUSIC TEACHER, LIPA, MELINA, HSTROPN, BMP #### [facility] [address] [place] [address] Dr. Yeimy Rosales XR CHEST 1 Von 08-17-2021 XR CHEST 1 V EXAM: XR CHEST 1 V REASON FOR EXAM: Male, 51 years, SHORTNESS OF BREATH. TECHNIQUE: A single AP view of the chest is performed. COMPARISON: None. FINDINGS: Cardiac monitoring leads project over the chest. The lungs are expanded and clear. Normal pleura. Normal size heart. Normal mediastinum and maddie. Normal visualized pulmonary arteries. Normal visualized aortic arch and descending thoracic aorta. Normal visualized thoracic spine. Normal visualized ribs, clavicles, and shoulders. There is no demonstrated abnormality of the visualized soft tissue structures of the upper abdomen. IMPRESSION: Normal examination of the chest. Electronically authenticated by: STORM CUELLAR Date: 2021-08-17 19:49 Normal [facility] CBC AUTO DIFFon 04-06-2021 BASO # 0.1 103/ul Normal 0.0-0.1 [facility] Comment on above: Performed By: #### L IPID, CMP #### [facility] [address] [place] [address] Dr. Yeimy Rosales Basophils/100 WBC (Bld) 0.8 % Normal 0.2-2.0 [facility] Comment on above: Performed By: #### L IPID, CMP #### [facility] [address] [place] [address] Dr. Yeimy Rosales EO # 0.1 103/ul Normal 0.0-0.7 [facility] Comment on above: Performed By: #### L IPID, CMP #### [facility] [address] [place] [address] Dr. Yeimy Rosales Eosinophils/100 WBC (Bld) 1.8 % Normal 0.9-7.0 [facility] Comment on above: Performed By: #### L IPID, CMP #### [facility] [address] [place] [address] Dr. Yeimy Rosales Erythrocyte distribution width (RBC) [Ratio] 12.5 % Normal 11.0-15.0 [facility] Comment on above: Performed By: #### L IPID, CMP #### [facility] [address] [place] [address] Dr. Yeimy Rosales Hematocrit (Bld) [Volume fraction] 41.4 % Critically low 42.0-54.0 [facility] Comment on above: Performed By: #### L IPID, CMP #### [facility] [address] [address] [address] Yeimy Rosales Hemoglobin (Bld) [Mass/Vol] 14.1 g/dL Normal 14.0-18.0 [facility] Comment on above: Performed By: #### L IPID, CMP #### [facility] [address] [place] [address] Dr. Yeimy Rosales IG # 0.02 10e3/ul Normal 0.00-0.03 [facility] Comment on above: Performed By: #### L IPID, CMP #### [facility] [address] [place] [address] Dr. Yeimy Rosales IG % 0.3 % Normal 0.0-0.5 [facility] Comment on above: Performed By: #### L IPID, CMP #### [facility] [address] [place] [address] Dr. Yeimy Rosales LYMPH # 2.0 103/ul Normal 1.2-3.8 [facility] Comment on above: Performed By: #### L IPID, CMP #### [facility] [address] [place] [address] Dr. Yeimy Rosales Lymphocytes/100 WBC (Bld) 31.7 % Normal 20.5-60.0 [facility] Comment on above: Performed By: #### L IPID, CMP #### [facility] [address] [place] [address] Dr. Yeimy Rosales MANUAL DIFF REQ NO Normal [facility] Comment on above: Performed By: #### L IPID, CMP #### [facility] [address] [place] [address] Dr. Yeimy Rosales MCH (RBC) [Entitic mass] 30.1 pg Normal 25.9-34.0 [facility] Comment on above: Performed By: #### L IPID, CMP #### [facility] [address] [place] [address] Dr. Yeimy Rosales MCHC (RBC) [Mass/Vol] 34.1 g/dL Normal 29.9-35.2 [facility] Comment on above: Performed By: #### L IPID, CMP #### [facility] [address] [place] [address] Dr. Yeimy Rosales MCV (RBC) [Entitic vol] 88.3 fL Normal 80.0-94.0 [facility] Comment on above: Performed By: #### L IPID, CMP #### [facility] [address] [place] [address] Dr. Yeimy Rosales MONO # 0.6 103/ul Normal 0.3-0.8 [facility] Comment on above: Performed By: #### L IPID, CMP #### [facility] [address] [place] [address] Dr. Yeimy Rosales Monocytes/100 WBC (Bld) 10.0 % Normal 1.7-12.0 [facility] Comment on above: Performed By: #### L IPID, CMP #### [facility] [address] [place] [address] Dr. Yeimy Rosales NEUT # 3.5 103/ul Normal 1.4-6.5 [facility] Comment on above: Performed By: #### L IPID, CMP #### [facility] [address] [place] [address] Dr. Yeimy Rosales Neutrophils/100 WBC (Bld) 55.4 % Normal 43.0-75.0 [facility] Comment on above: Performed By: #### L IPID, CMP #### [facility] [address] [place] [address] Dr. Yeimy Rosales Platelet mean volume (Bld) [Entitic vol] 9.0 fL Critically low 9.5-13.5 [facility] Comment on above: Performed By: #### L IPID, CMP #### [facility] [address] [place] [address] Dr. Yeimy Rosales PLT 291 103/ul Normal 150-450 [facility] Comment on above: Performed By: #### L IPID, CMP #### [facility] [address] [place] [address] Dr. Yeimy Rosales RBC 4.69 106/ul Critically low 4.70-6.10 [facility] Comment on above: Performed By: #### L IPID, CMP #### [facility] [address] [address] [address] Yeimy Rosales WBC 6.3 103/ul Normal 4.0-11.0 [facility] Comment on above: Performed By: #### L IPID, CMP #### [facility] [address] [address] [address] Yeimy Rosales LIPID PROFILEon 04-06-2021 CHOL-HDL RATIO NORM SEE BELOW Normal [facility] Comment on above: Result Comment: 3.3 - 4.4 LOW RISK 4.4 - 7.1 AVERAGE RISK 7.1 - 11.0 MODERATE RISK >11.0 HIGH RISK Performed By: #### L IPID, CMP #### [facility] [address] [address] [address] Yeimy Rosales Cholesterol [Mass/Vol] 212 mg/dL Critically high <=200 [facility] Comment on above: Performed By: #### L IPID, CMP #### [facility] [address] [address] [address] Yeimy Rosales Cholesterol in HDL [Mass/Vol] 51 mg/dL Normal [facility] Comment on above: Performed By: #### L IPID, CMP #### [facility] [address] [address] [address] Yeimy Rosales Cholesterol in LDL [Mass/Vol] 125.2 mg/dL Normal [facility] Comment on above: Performed By: #### L IPID, CMP #### [facility] [address] [address] [address] Yeimy Rosales Cholesterol.total/Choles terol in HDL [Mass ratio] 4.2 {ratio} Normal [facility] Comment on above: Performed By: #### L IPID, CMP #### [facility] [address] [address] [address] Yeimy Rosales HDL NORMAL > or = 60 mg/dl - LO W CARDIOVASCULAR RISK <40 mg/dl - HIGH CARDIOVASCULAR RISK Normal [facility] Comment on above: Performed By: #### L IPID, CMP #### [facility] [address] [place] [address] Dr. Yeimy Rosales LDL CALC NORMAL SEE BELOW Normal [facility] Comment on above: Result Comment: <100 mg/dl OPTIMAL 100 - 129 mg/dl NEAR OR ABOVE OPTIMAL 130 - 159 mg/dl BORDERLINE HIGH 160 - 189 mg/dl HIGH >190 mg/dl VERY HIGH Performed By: #### L IPID, CMP #### [facility] [address] [address] [address] Yeimy Rosales Triglyceride [Mass/Vol] 179 mg/dL Critically high <=150 [facility] Comment on above: Performed By: #### L IPID, CMP #### [facility] [address] [place] [address] Dr. Yeimy Rosales VLDL CALC 35.8 mg/dL Normal [facility] Comment on above: Performed By: #### L IPID, CMP #### [facility] [address] [place] [address] Dr. Yeimy Rosales PROF 14(COMP METB)on 021 Albumin [Mass/Vol] 4.0 g/dL Normal 3.5-5.0 [facility] Comment on above: Performed By: #### L IPID, CMP #### [facility] [address] [place] [address] Dr. Yeimy Rosales Albumin/Globulin [Mass ratio] 1.1 {ratio} Normal [facility] Comment on above: Performed By: #### L IPID, CMP #### [facility] [address] [place] [address] Dr. Yeimy Rosales ALP [Catalytic activity/Vol] 64 U/L Normal 38-126 [facility] Comment on above: Performed By: #### L IPID, CMP #### [facility] [address] [place] [address] Dr. Yeimy Rosales ALT [Catalytic activity/Vol] 26 U/L Normal 21-72 [facility] Comment on above: Performed By: #### L IPID, CMP #### [facility] [address] [place] [address] Dr. Yeimy Rosales Anion gap [Moles/Vol] 8.7 mmol/L Normal [facility] Comment on above: Performed By: #### L IPID, CMP #### [facility] [address] [place] [address] Dr. Yeimy Rosales AST [Catalytic activity/Vol] 18 U/L Normal 17-59 [facility] Comment on above: Performed By: #### L IPID, CMP #### [facility] [address] [place] [address] Dr. Yeimy Rosales Bilirubin [Mass/Vol] 0.8 mg/dL Normal 0.2-1.3 [facility] Comment on above: Performed By: #### L IPID, CMP #### [facility] [address] [place] [address] Dr. Yeimy Rosales Calcium [Mass/Vol] 9.3 mg/dL Normal 8.4-10.2 [facility] Comment on above: Performed By: #### L IPID, CMP #### [facility] [address] [place] [address] Dr. Yeimy Rosales Chloride [Moles/Vol] 102 mmol/L Normal 98-107 [facility] Comment on above: Performed By: #### L IPID, CMP #### [facility] [address] [place] [address] Dr. Yeimy Rosales CO2 [Moles/Vol] 30.5 mmol/L Critically high 22.0-30.0 [facility] Comment on above: Performed By: #### L IPID, CMP #### [facility] [address] [place] [address] Dr. Yeimy Rosales Creatinine [Mass/Vol] 1.02 mg/dL Normal 0.66-1.25 [facility] Comment on above: Performed By: #### L IPID, CMP #### [facility] Laboratory [address] [place] [address] Dr. Yeimy Rosales EGFR-AF GUAMANIAN >60 Normal >=60 [facility] Comment on above: Performed By: #### L IPID, CMP #### [facility] [address] [place] [address] Dr. Yeimy Rosales EGFR-NON AF GUAMANIAN >60 Normal >=60 [facility] Comment on above: Performed By: #### L IPID, CMP #### [facility] [address] [address] [address] Yeimy Rosales Globulin (S) [Mass/Vol] 3.7 g/dL Normal [facility] Comment on above: Performed By: #### L IPID, CMP #### [facility] [address] [address] [address] Yeimy Rosales Glucose [Mass/Vol] 113 mg/dL Critically high 74-106 [facility] Comment on above: Performed By: #### L IPID, CMP #### [facility] [address] [address] [address] Yeimy Rosales Potassium [Moles/Vol] 4.2 mmol/L Normal 3.4-5.0 [facility] Comment on above: Performed By: #### L IPID, CMP #### [facility] [address] [place] [address] Dr. Yeimy Rosales Protein [Mass/Vol] 7.7 g/dL Normal 6.1-8.2 [facility] Comment on above: Performed By: #### L IPID, CMP #### [facility] [address] [place] [address] Dr. Yeimy Rosales Sodium [Moles/Vol] 137 mmol/L Normal 137-145 [facility] Comment on above: Performed By: #### L IPID, CMP #### [facility] [address] [place] [address] Dr. Yeimy Rosales Urea nitrogen [Mass/Vol] 19.0 mg/dL Normal 9.0-20.0 [facility] Comment on above: Performed By: #### L IPID, CMP #### [facility] [address] [place] [address] Dr. Yeimy Rosales Urea nitrogen/Creatinine [Mass ratio] 18.6 mg/mg Normal [facility] Comment on above: Performed By: #### L IPID, CMP #### [facility] [address] [address] [address] Yeimy Rosales Vital Signs Date Time Vital Sign Value Performing Clinician Faci lity 01-16-2025 09:28-0400 Body height 177.8 cm Uzair Ball DO Work Phone: [facility] 01-16-2025 09:28-0400 Body mass index (BMI) [Ratio] 28.8 kg/m2 Uzair Ball DO Work Phone: [facility] 01-16-2025 09:28-0400 Body weight 91.22 kg Uzair Ball DO Work Phone: [facility] 01-16-2025 09:28-0400 Diastolic blood pressure 89 mm[Hg] Uzair Ball DO Work Phone: [facility] 01-16-2025 09:28-0400 Heart rate 68 /min Uzair Ball DO Work Phone: [facility] 01-16-2025 09:28-0400 Respiratory rate 12 /min Uzair Ball DO Work Phone: [facility] 01-16-2025 09:28-0400 Systolic blood pressure 139 mm[Hg] Uzair Ball DO Work Phone: [facility] 06-28-2024 08:36-0500 Body height 177.8 cm Uzair Ball DO Work Phone: [facility] 06-28-2024 08:36-0500 Body mass index (BMI) [Ratio] 27.5 kg/m2 Uzair Ball DO Work Phone: [facility] 06-28-2024 08:36-0500 Body weight 87.08 kg Uzair Ball DO Work Phone: [facility] 06-20-2024 14:53-0500 Body height 177.8 cm Uzair Ball DO Work Phone: [facility] 06-20-2024 14:53-0500 Body mass index (BMI) [Ratio] 31 kg/m2 Uzair Ball DO Work Phone: [facility] 06-20-2024 14:53-0500 Body weight 98.03 kg Uzair Ball DO Work Phone: [facility] 06-20-2024 14:53-0500 Diastolic blood pressure 93 mm[Hg] Uzair Ball DO Work Phone: [facility] 06-20-2024 14:53-0500 Heart rate 80 /min Uzair Ball DO Work Phone: [facility] 06-20-2024 14:53-0500 Respiratory rate 12 /min Uzair Ball DO Work Phone: [facility] 06-20-2024 14:53-0500 Systolic blood pressure 144 mm[Hg] Uzair Ball DO Work Phone: [facility] 01-13-2024 08:32-0400 Body height 177.8 cm [facility] 01-13-2024 08:32-0400 Body mass index (BMI) [Ratio] 27.4 kg/m2 [facility] 01-13-2024 08:32-0400 Body weight 86.8 kg [facility] 01-13-2024 08:32-0400 Diastolic blood pressure 96 mm[Hg] [facility] 01-13-2024 08:32-0400 Heart rate 64 /min [facility] 01-13-2024 08:32-0400 Respiratory rate 12 /min [facility] 01-13-2024 08:32-0400 Systolic blood pressure 148 mm[Hg] [facility] Encounters Encounter Date Encounter Type Care Provider Facility Start: 01-16-2025 End: 01-16-2025 ambulatory Uzair Ball DO Work Phone: [facility] Work Phone: Start: 01-16-2025 End: 01-16-2025 Patient encounter procedure Uzair Ball DO -[facility] Work Phone: Start: 01-16-2025 End: 01-16-2025 Patient encounter status Uzair Fine DO [facility] Start: 06-28-2024 End: 06-28-2024 ambulatory Uzair Ball DO Work Phone: [facility] Work Phone: Start: 06-28-2024 End: 06-28-2024 Patient encounter procedure Uzair Fine DO Work Phone: [facility] Work Phone: Start: 06-20-2024 End: 06-20-2024 Patient encounter procedure Uzair Fine DO Work Phone: [facility] Work Phone: Start: 01-23-2024 End: 01-23-2024 Patient encounter procedure DO Uzair Fine Work Phone: [facility] [place] Work Phone: Start: 01-23-2024 End: 01-23-2024 ambulatory DO Uzair Fine Work Phone: [facility] Work Phone: Start: 01-23-2024 Encounter for genera l adult medical examination without abnormal findings Uzair Fine [facility] Start: 01-13-2024 End: 01-13-2024 ambulatory [facility] Work Phone: Start: 01-13-2024 End: 01-13-2024 Encounter for general adult medical examination without abnormal findings [facility] Start: 01-13-2024 End: 01-13-2024 Patient encounter procedure [facility] Work Phone: Start: 08-17-2021 End: 08-17-[address] UZAIR FINE Facility:[facility] Start: 05-28-2021 End: 05-29-2021 ambulatory STACEY JOSHUA Facility:[facility] Start: 04-12-2021 Encounter for genera l adult medical examination without abnormal findings DR UZAIR FINE [facility] Start: 04-06-2021 End: 04-07-[address] UZAIR FINE Facility:[facility] Start: 04-06-2021 End: 04-07-2021 Encounter for general adult medical examination without abnormal findings DR UZAIR BALL Facility:[facility] Start: 09-03-2020 End: 01-17-[address] NONE LISTED REQUEST Facility:[facility] Procedures Date Procedure Procedure Detail Performing Clinician Start: 06-28-2024 X-ray of left knee, four views Uzair Fine DO Work Phone: Start: 06-28-2024 X-ray of right knee, two views Uzair Fine DO Work Phone: Start: 04-06-2021 PSA screening STACEY GIBSON Comment on above: Performed By: #### P [facility] #### [facility] [address] [place] [address] Dr. Yeimy Rosales Plan of Treatment Date Care Activity Detail Author Start: 06-20-2024 Patient referral [facility] Work Phone: Comprehensive metabo lic 1999 panel - Serum or Plasma [facility] Comprehensive metabo lic 1999 panel - Serum or Plasma [facility] Patient referral [facility] Work Phone: XR Knee - left 4 Views [facility] Immunizations Immunization Date Immunization Notes Care Provider Fa cility 04-04-2022 influenza virus vacc ine, unspecified formulation [facility] 03-26-2021 influenza virus vacc ine, unspecified formulation [facility] 09-25-2020 COVID-19 mRNA, Comir tu (Pfizer) [facility] 09-03-2020 COVID-19 mRNA, Comir tu (Pfizer) [facility] 03-01-2020 influenza virus vacc ine, unspecified formulation [facility] Payers Date Payer Category Payer Unknown [id number] 1970 Unknown [id number] [id number] [id number] 1970 Unknown [id number] [id number] [id number] 1960 Self-pay 1960 Unknown [id number] Unknown [id number] [id number] [id number] Unknown [id number] 2.16.84 [id number] Unknown [id number] 2.16.8 [id number] Unknown [id number] [id number] Social History Date Type Detail Facility Start: 01-13-2024 End: 06-20-2024 Tobacco smoking status NHIS Never smoked tobacco (finding) [facility] Start: 1970 Sex Assigned At Male F [facility] Start: 06-29-2024 Sex Patient sex un known (finding) [facility] Sex Male (finding) [facility] Evaluation note 06-20-2024 Note Date & Type Note Facility 06-20-2024 Evaluation note Diagnosis Onset Date Resolution Essential (primary) hypertension acute June 20 2:44pm Left knee pain acute June 2:44pm Sprain of medial meniscus of left knee acute June 20 2:44pm Chondrocalcinosis of left knee acute June 28 7:50am Pseudogout of left knee acute J an2024 7:50am [facility] Work Phone: Evaluation note Note Date & Type Note Facility Evaluation note Diagnosis Onset Date Erectile dysfunction acute Essential (primary) hypertension acute Overweight acute Screening PSA (prostate specific antigen) noneactive Wellness examination noneact star [facility] Work Phone: Evaluation note Note Date & Type Note Facility Evaluation note Diagnosis Onset Date Resolution Erectile dysfunction acute 2024 9:18am Essential (primary) hypertension acute January 16, 2025 9:18am Overweight acute January 16 9:18am Screening PSA (prostate specific antigen) noneactive January 16 9:18am Wellness examination noneactive 2024 9:18am [facility] Work Phone: Reason for referral (narrative) Note Date & Type Note Facility Reason for referral (narrative) No reason for referral information available [facility] Work Phone: Summary Purpose Family History No Family History Records FoundNo Family History Records Found Advance Directives Advance Directive Response Recorded Date/ Time Advance Directives No January 12 8:20am Advance Directive Response Recorded Date/ Time Advance Directives No June 20, 2024 10:19am Advance Directive Response Recorded Date/ Time Advance Directives No June 20, 2024 11:19am Chief Complaint and Reason for Visit Chief Complaint wellness Reason for Visit Erectile dysfunction Essential (primary) hypertension Overweight Screening PSA (prostate specific antigen) Wellness examination Chief Complaint wellness z00.00 Reason for Visit Erectile dysfunction Essential (primary) hypertension Overweight Screening PSA (prostate specific antigen) Wellness examination Chief Complaint Admit Date L Knee Pain June 20, 2024 2: 44pm CONSULT DR. FINE LT KNEE PAIN, NX Januar y 2024 7:50am M25.562 June 28, 2024 7 :59am Reason for Visit Admit Date Essential (primary) hypertension June 20, 2024 2:44pm Left knee pain June 20, 2024 2: 44pm Sprain of medial meniscus of left knee J anuary 2024 2:44pm Chondrocalcinosis of left knee June 152024 7:50am Pseudogout of left knee June 28 7:50am Chief Complaint Admit Date Wellness January 16, 2025 9:1 8am Reason for Visit Admit Date Erectile dysfunction January 16, 2025 9: 18am Essential (primary) hypertension January 16, 2025 9:18am Overweight January 16, 2025 9:1 8am Screening PSA (prostate specific antigen ) January 16, 2025 9:18am Wellness examination January 16, 2025 9: 18am Additional Source Comments (unrecognized sect ion and content) No Status Records FoundNo Status Records Found INFORMATION SOURCE (unrecogn ized section and content) DATE CREATED AUTHOR 08/19/2021 Kerri meraz DATE CREATED AUTHOR 'S ORGANIZ ATION 07/01/2024 [facility] Care Teams (unrecognized sec tion and content) Team Status: Active Member Role Status Dates Uzair Fine DO Primary Care Provider Active Team Status: Inactive Member Role Status Dates Uzair Ball , DO Primary Care Provide r, Attending Provider Active Start: January 13, 2024 End: January 13, 2024 Team Status: Inactive Member Role Status Dates Uzair Fine DO Primary Care Provide r, Attending Provider Active Start: January 23, 2024 End: January 23, 2024 Team Status: Inactive Member Role Status Dates Uzair Fine DO Primary Care Provide r, Attending Provider Active Start: June 20, 2024 End: June 20, 2024 Team Status: Inactive Member Role Status Dates Uzair Roverto DO Primary Care Provider Active Start: June 28, 2024 End: June 28, 2024 Mark Marshall , DO Attending Provider Active St art: June 28, 2024 End: June 28, 2024 Team Status: Inactive Member Role Status Dates Uzair Fine DO Primary Care Provider Active Start: January 16, 2025 End: January 16, 2025 Uzair Fine DO Attending Provider Active Sta rt: January 16, 2025 End: January 16, 2025 Goals (unrecognized section and content) Goals may be documented in a n alternate sectionGoals may be documented in an alternate sectionGoals may be documented in an alternate sectionGoals may be documented in an alternate section FOR RECORDS PERTAINING TO PATIENTS WHO ARE OR HAVE BEEN ENROLLED IN A CHEMICAL DEPENDENCY/SUBSTANCEABUSE PROGRAM, SOME INFORMATION MAY BE OMITTED. This clinical summary was aggregated from multiple sources. Caution should be exercised in using it in the provision of clinical care. This summary normalizes information from multiple sources, and as a consequence, information in this document may materially change the coding, format and clinical context of patient data. In addition, data may be omitted in some cases. CLINICAL DECISIONS SHOULD BE BASED ON THE PRIMARY CLINICAL RECORDS. [employer] provides no warranty or guarantee of the accuracy or completeness of information in this document.
[2025-02-25 09:02] LABS: Hematocrit 41.7 % (42.0-54.0); Hemoglobin 14.3 g/dL (14.0-18.0); Immature Granulocytes Abs Auto 0.01 10^3/uL (0.00-0.03); Immature Granulocytes Pct Auto 0.2 % (0.0-0.5); Lymphocytes Absolute Auto 1.9 10^3/uL (1.2-3.8); Mean Corpuscular HGB Conc 34.3 g/dL (29.9-35.2); Mean Corpuscular Hemoglobin 29.9 pg (25.9-34.0); Mean Corpuscular Volume 87.2 fL (80.0-94.0); Platelet Count 326 10^3/uL (150-450); Red Blood Count 4.78 10^6/uL (4.70-6.10); White Blood Count 5.3 10^3/uL (4.0-11.0)
[2025-02-25 09:29] LABS: Alanine Aminotransferase 39 U/L (16-63); Albumin Globulin Ratio 1.0; Albumin Level 4.1 g/dL (3.4-5.0); Alkaline Phosphatase 91 U/L (46-116); Anion Gap 15.3; Aspartate Amino Transferase 22 U/L (15-37); Blood Urea Nitrogen 16.0 mg/dL (7.0-18.0); Calcium 9.4 mg/dL (8.5-10.1); Carbon Dioxide 28.1 mmol/L (21.0-32.0); Chloride 104 mmol/L (98-107); Cholesterol 224 mg/dL (<=200); Estimated GFR (African America >60 (>=60 mL/min/1.73m^2); Estimated GFR (Non-African Ame >60 (>=60 mL/min/1.73m^2); Globulin 4.0 g/dL; Glucose 112 mg/dL (74-106); HDL Cholesterol 59 mg/dL (40-60); Potassium 4.4 mmol/L (3.5-5.1); Sodium 143 mmol/L (136-145); Total Protein 8.1 g/dL (6.4-8.2); Triglycerides 133 mg/dL (<=150); VLDL CHOLESTEROL 26.6 mg/dL
== END 2025-02-25 07:48 | disposition home or self-care (01) ==
PROVIDERS: PCP Internal Medicine; Visit Provider Internal Medicine
DX: Z00.00 Encounter for general adult medical examination without abnormal findings (principal); H35.60 Retinal hemorrhage, unspecified eye; R09.89 Other specified symptoms and signs involving the circulatory and respiratory systems; Z12.5 Encounter for screening for malignant neoplasm of prostate; N52.01 Erectile dysfunction due to arterial insufficiency; H35.82 Retinal ischemia
CPT/HCPCS: 36415; 80053; 80061; 83036; 84403; 85025; 93880; G0103